=== PATIENT | male | born 1965 | race Caucasian/White ===

== ENCOUNTER 2022-07-31 01:06 | Emergency (ER) | payer BC ==
[~2022-07-31] VITALS: Ht 167.6 cm; Wt 82.0 kg
[2022-07-31] MEDS ORDERED: SODIUM CHLORIDE 0.9% 1,000 ML IV ONE (02:00)
[2022-07-31 02:57] LABS: BASOPHILS % 0.8 % (0.0-2.0); EOSINOPHILS % 6.4 % (0.0-5.0); HEMATOCRIT. 41.5 % (42.0-52.0); HEMOGLOBIN. 13.5 g/dL (14.0-18.0); MEAN CORPUSCULAR HEMOGLOBIN 25.2 pg (28.0-32.0); MEAN CORPUSCULAR VOLUME 77.5 fL (80.0-94.0); MONOCYTES % 14.9 % (2.0-8.0); NEUTROPHILS % 44.9 % (40.0-76.0); PLATELET 347 x1000/uL (130-400); RED BLOOD CELL COUNT 5.36 mill/uL (4.7-6.1); RED CELL DISTRIBUTION WIDTH 15.2 % (11.6-14.6)
[2022-07-31 03:01] LABS: CHLORIDE 111 mEq/L (98-107)
[2022-07-31 03:13] LABS: ETHANOL BLOOD 316 mg/dL (-10)
[2022-07-31 04:06] VITALS: BP 166/99
[2022-07-31] MEDS ORDERED: LORAZEPAM 2MG/ML CPJ IV ONE (04:45)
== END 2022-07-31 07:57 | disposition home or self-care (01) ==
LOC: ER 01:15
DX: R41.82 Altered mental status, unspecified (principal); F10.129 Alcohol abuse with intoxication, unspecified; Y90.8 Blood alcohol level of 240 mg/100 ml or more
CPT/HCPCS: 36415; 80053; 80320; 84484; 85025; 93005; 96374; 99284; J2060; J7030; Z7610; G0480